=== PATIENT | female | born 1995 | race Hispanic/Latino ===

== ENCOUNTER 2017-02-11 21:00 | Emergency (ER) | payer OTHER ==
[~2017-02-11] VITALS: Ht 165.1 cm; Wt 68.2 kg
[2017-02-11 21:04] VITALS: BP 127/83; PULSE 95; O2SAT 99
--- NOTE | 2017-02-11 21:15 | ED.REPORT ---
HPI-Extremity Problem Lower Date of Service Feb 11, 2017 ED Provider: Danny Browning MD A healthy 21 year old female presents to the ED with left knee pain onset 1900 today, upon standing from a kneeling position. At onset the patient heard a "pop" and was immediately unable to bear weight. She also reports knee redness, knee swelling, intermittent calf numbness, and intermittent calf paresthesias. The patient denies other symptoms. She has had similar symptoms in the past, although less severe, which resolved without treatment. Nursing Notes Stated Complaint: LEFT KNEE PAIN Chief Complaint: Extremity Trauma Nursing Notes Reviewed: Yes Allergies: Coded Allergies: No Known Allergies (Unverified , 02/11/17) Scheduled PRN Ibuprofen (Ibuprofen) 600 Mg Tablet 600 MG PO QID PRN PRN For Pain General Time Seen by MD: 21:12 Chief Complaint Knee injury left Hx Obtained From: Patient Arrived By: Walk-in Onset Occurred: 1 - 4 hours ago Symptom Duration: Since onset Location: : Knee left Quality: Painful Severity: Current: Moderate Severity: Maximum: Moderate Associated with: Reports: Numb extremities (Left calf), Swelling, Unable to bear weight Pertinent Negative: Relieved by nothing Immunizations: Unknown Recent Healthcare: No recent doctor visit Similar Sx Previous: Yes Past Medical History Past Medical History None reported Past Surgical History None reported Smoking History Unknown if Ever Smoker Social History Other Social History: Good social support, From out of town Ambulatory Status Independent Review of Systems Review of Systems Note: + Left knee redness, intermittent left calf paresthesias Constitutional: Denies: Fever Musculoskeletal: Reports: Joint pain (Left Knee), Joint swelling (Left Knee) Neurologic: Reports: Numbness (Intermittent, left calf) Complete sys rev & neg: except as marked. Respiratory: Denies: Non-productive cough, Shortness of breath GI: Denies: Diarrhea, Vomiting Physical Exam Initial Vital Signs Vital Signs (First) Date Time Temp Pulse Resp B/P Pulse Ox O2 Delivery O2 Flow Rate FiO2 02/11/17 21:04 37.4 95 127/83 99 Room Air Initial VS: Reviewed Head / Eyes: Atraumatic, Normocephalic ENT: Conjunctiva normal, No scleral icterus Neck: Supple, Full range of motion Skin: Warm, Dry, No cyanosis Neurologic: Alert, Oriented, Nonfocal Psychiatric: Mood/affect normal, Behavior normal, Normal thought content Lower Extremity / Pelvis / MS: Full range of motion (Without tenderness), No deformity Left Knee: Positive: Tenderness present... (Diffuse) No joint effusion Linnea test negative Zhang test questionably positive - left lateral knee General/Constitutional: Awake, Alert Re-Eval/Medical Decision Med Decision/Clinical Course 21-year-old female with left knee pain that started immediately while doing squats earlier today. Knee popped. Now with diffuse left knee pain. She is diffusely tender left knee. There is no effusion. Full range of motion with no pain on range of motion. Linnea's negative. Zhang's is questionably positive left lateral knee. Sprain versus meniscus injury. Weightbearing as tolerated. Given crutches. Rice. Crutch training. Recommend follow-up with primary doctor one week if pain does not resolve. Return precautions given. Re-Evaluation/Progress : Time of Eval: 21:50 Patient Status: Condition improved Re-Evaluation/Progress Note: Discussed with patient physical exam findings, diagnosis, and plan for discharge. Follow-up and return to the ER instructions given. Patient agrees with plan for care and all questions were addressed. Counseled Regarding: Diagnosis, Need for follow-up, When/why to return to ED Discharge & Departure Impression: Primary Impression: Left knee injury Encounter type: initial encounter Qualified Code: S89.92XA - Unspecified injury of left lower leg, initial encounter Disposition: Home Discharge Condition All VS Reviewed: Yes Condition: Improved Patient Instructions: Crutch Instructions (ED), Knee Sprain (ED) Additional Instructions: Thank you for entrusting us with your care. Wear a compression wrap on your affected knee. Ice your knee for 20 minutes, three times a day. Make sure there is a layer between your skin and the ice. Bear weight only as tolerated. Use crutches as needed. Use nonsteroidal anti-inflammatory drugs such as ibuprofen or Aleve as directed for pain. Call your primary care provider for a follow-up appointment in the next two weeks, if your symptoms have not improved. Return to the ER with any new or worsening symptoms. Referrals: [facility] Scribe Attestation Portions of this note were transcribed by Lora Kenney. I, Dr. Browning, personally performed the history, physical exam, and medical decision-making; I reviewed and confirmed the accuracy of the information in the transcribed note. Signed by: Roxanne Beaver, 02/11/2017, 23:30 copies to: [facility] Danny Browning MD Feb 11, 2017 21:15 LORA KENNEY Feb 11, 2017 21:24
[2017-02-11] MEDS ORDERED: IBUP-1827 PO (21:25)
[2017-02-11 22:05] VITALS: BP 118/78; PULSE 88; O2SAT 99
== END 2017-02-11 22:07 | disposition home or self-care (01) ==
LOC: SED 21:00
DX: S89.92XA Unspecified injury of left lower leg, initial encounter (principal); X50.1XXA Overexertion from prolonged static or awkward postures, initial encounter; Y93.89 Activity, other specified; Y92.89 Other specified places as the place of occurrence of the external cause; Y99.8 Other external cause status